=== PATIENT | female | born 1955 | race Native Hawaiian/Other Pacific Islander ===

== ENCOUNTER 2021-11-02 10:37 | Inpatient (IN) | payer OTHER, MEDICARE ==
[~2021-11-02] VITALS: Ht 154.9 cm; Wt 68.7 kg
[2021-11-03] MEDS ORDERED: PNEUMOCOCCAL VACCINE POLYVALENT 0.5 ML VIAL [PPSV23] IM. ONE (17:15)
[2021-11-03] MEDS ORDERED: ALBUTEROL SULFATE 2.5 MG/0.5 ML NEB SOLUTION NEB PRN (17:45)
[2021-11-03] MEDS ORDERED: MELATONIN 3 MG TABLET PO PRN (17:45)
[2021-11-03 18:45] VITALS: BP 133/72
[2021-11-03] MEDS: DOCUSATE SODIUM 100 MG CAPSULE PO SCH (21:31)
[2021-11-03] MEDS: APIXABAN 5 MG TABLET PO SCH (21:31)
[2021-11-03] MEDS: PANTOPRAZOLE SODIUM 40 MG DR TABLET PO SCH (21:31)
[2021-11-03] MEDS: SENNA 187 MG TABLET PO SCH (21:31)
[2021-11-03] MEDS: ATORVASTATIN CALCIUM 40 MG TABLET PO SCH (21:31)
[2021-11-03] MEDS: DICLOFENAC SODIUM 1% 100 GM GEL [4GM] TP SCH (21:32)
[2021-11-04 02:30] VITALS: BP 109/63
[2021-11-04 06:17] LABS: EOSINOPHILS % (AUTO) 4.2 % (1.0-6.0); HEMATOCRIT 32.5 % (36-46); HEMOGLOBIN 10.8 g/dL (12.0-16.0); LYMPHOCYTES # (AUTO) 1.2 K/uL (1.0-4.8); LYMPHOCYTES % (AUTO) 15.5 % (22.0-44.0); MEAN CORPUSCULAR HEMOGLOBIN 29.6 pg (26.0-34.0); MEAN CORPUSCULAR HGB CONC 33.3 G/dL (31.0-37.0); MEAN CORPUSCULAR VOLUME 89 fL (80-100); MONOCYTES # (AUTO) 0.8 K/uL (0.1-1.0); MONOCYTES % (AUTO) 10.4 % (2.0-9.0); NEUTROPHILS # (AUTO) 5.4 K/uL (1.8-7.7); NEUTROPHILS % (AUTO) 68.9 % (40.0-70.0); PLATELET COUNT (AUTO) 490 K/uL (150-450); RED BLOOD CELL COUNT(AUTO) 3.66 MIL/uL (4.00-5.20)
[2021-11-04 06:43] LABS: ALBUMIN 2.6 g/dL (3.4-5.0); BILIRUBIN,TOTAL 0.6 mg/dL (0.1-1.0); CALCIUM, TOTAL 9.1 mg/dL (8.8-10.5); CREATININE 1.24 mg/dL (0.60-1.30); POTASSIUM 4.6 mmol/L (3.5-5.1)
[2021-11-04] MEDS: MULTIVITAMINS WITH MINERALS, THERAPEUTIC TABLET PO SCH (08:03)
[2021-11-04] MEDS: DOCUSATE SODIUM 100 MG CAPSULE PO SCH ×2 (08:03→21:20)
[2021-11-04] MEDS: FUROSEMIDE 40 MG TABLET PO SCH (08:04)
[2021-11-04] MEDS: DICLOFENAC SODIUM 1% 100 GM GEL [4GM] TP SCH ×3 (08:04→21:20)
[2021-11-04] MEDS: APIXABAN 5 MG TABLET PO SCH ×2 (08:04→21:20)
[2021-11-04] MEDS: AMIODARONE HCL 200 MG TABLET PO SCH (08:04)
[2021-11-04] MEDS: LOSARTAN POTASSIUM 50 MG TABLET PO SCH (08:21)
[2021-11-04 08:26] VITALS: BP 122/45
[2021-11-04] MEDS: ACETAMINOPHEN 325 MG TABLET PO PRN (08:31)
[2021-11-04 10:55] VITALS: BP 123/69
[2021-11-04 15:40] VITALS: BP 143/80
[2021-11-04] MEDS: PANTOPRAZOLE SODIUM 40 MG DR TABLET PO SCH (21:20)
[2021-11-04] MEDS: SENNA 187 MG TABLET PO SCH (21:20)
[2021-11-04] MEDS: ATORVASTATIN CALCIUM 40 MG TABLET PO SCH (21:22)
[2021-11-05] VITALS: BP 135/67
[2021-11-05 08:05] VITALS: BP 123/63
[2021-11-05] MEDS: APIXABAN 5 MG TABLET PO SCH ×2 (08:31→21:19)
[2021-11-05] MEDS: FUROSEMIDE 40 MG TABLET PO SCH (08:31)
[2021-11-05] MEDS: MULTIVITAMINS WITH MINERALS, THERAPEUTIC TABLET PO SCH (08:31)
[2021-11-05] MEDS: AMIODARONE HCL 200 MG TABLET PO SCH (08:31)
[2021-11-05] MEDS: LOSARTAN POTASSIUM 50 MG TABLET PO SCH (08:32)
[2021-11-05] MEDS: DOCUSATE SODIUM 100 MG CAPSULE PO SCH (08:32)
[2021-11-05] MEDS: DICLOFENAC SODIUM 1% 100 GM GEL [4GM] TP SCH ×3 (08:34→21:20)
[2021-11-05] MEDS ORDERED: DEXTRAN 70 0.1%/HYPROMELL 0.3% 0.9 ML OPHTHALMIC SOLUTION [PF] OU PRN (15:15)
[2021-11-05 16:34] VITALS: BP 145/72
[2021-11-05] MEDS ORDERED: MAGNESIUM HYDROXIDE SUSPENSION 30 ML UDCUP PO PRN (18:30)
[2021-11-05] MEDS: DOCUSATE SODIUM 250 MG CAPSULE PO SCH (21:19)
[2021-11-05] MEDS: ATORVASTATIN CALCIUM 40 MG TABLET PO SCH (21:19)
[2021-11-05] MEDS: SENNA 187 MG TABLET PO SCH (21:19)
[2021-11-05] MEDS: PANTOPRAZOLE SODIUM 40 MG DR TABLET PO SCH (21:19)
[2021-11-05] MEDS: ETHYL ALCOHOL 62% ANTISEPTIC NASAL SANITIZER 0.6 ML AMPUL NASAL SCH (21:29)
[2021-11-05 23:44] VITALS: BP 136/75
[2021-11-06 08:15] VITALS: BP 155/77
[2021-11-06] MEDS: ETHYL ALCOHOL 62% ANTISEPTIC NASAL SANITIZER 0.6 ML AMPUL NASAL SCH ×2 (08:21→20:12)
[2021-11-06] MEDS: DICLOFENAC SODIUM 1% 100 GM GEL [4GM] TP SCH ×3 (08:21→20:12)
[2021-11-06] MEDS: LOSARTAN POTASSIUM 50 MG TABLET PO SCH (08:22)
[2021-11-06] MEDS: MULTIVITAMINS WITH MINERALS, THERAPEUTIC TABLET PO SCH (08:30)
[2021-11-06] MEDS: FUROSEMIDE 40 MG TABLET PO SCH (08:30)
[2021-11-06] MEDS: AMIODARONE HCL 200 MG TABLET PO SCH (08:30)
[2021-11-06] MEDS: DOCUSATE SODIUM 250 MG CAPSULE PO SCH ×2 (08:30→20:13)
[2021-11-06] MEDS: APIXABAN 5 MG TABLET PO SCH ×2 (08:31→20:13)
[2021-11-06 16:03] VITALS: BP 148/81
[2021-11-06] MEDS: PANTOPRAZOLE SODIUM 40 MG DR TABLET PO SCH (20:13)
[2021-11-06] MEDS: ATORVASTATIN CALCIUM 40 MG TABLET PO SCH (20:13)
[2021-11-06] MEDS: SENNA 187 MG TABLET PO SCH (20:13)
[2021-11-06] MEDS ORDERED: LOSA-382 PO (20:29)
[2021-11-07 02:59] VITALS: BP 122/56
[2021-11-07 07:23] LABS: BASOPHILS % (AUTO) 1.1 % (0.0-2.0); EOSINOPHILS % (AUTO) 5.8 % (1.0-6.0); HEMATOCRIT 35.3 % (36-46); HEMOGLOBIN 11.8 g/dL (12.0-16.0); LYMPHOCYTES # (AUTO) 1.1 K/uL (1.0-4.8); LYMPHOCYTES % (AUTO) 19.8 % (22.0-44.0); MEAN CORPUSCULAR HEMOGLOBIN 29.7 pg (26.0-34.0); MEAN CORPUSCULAR HGB CONC 33.4 G/dL (31.0-37.0); MEAN CORPUSCULAR VOLUME 89 fL (80-100); MONOCYTES # (AUTO) 0.5 K/uL (0.1-1.0); MONOCYTES % (AUTO) 8.7 % (2.0-9.0); NEUTROPHILS # (AUTO) 3.4 K/uL (1.8-7.7); NEUTROPHILS % (AUTO) 64.6 % (40.0-70.0); PLATELET COUNT (AUTO) 520 K/uL (150-450); RED BLOOD CELL COUNT(AUTO) 3.98 MIL/uL (4.00-5.20); RED CELL DISTRIBUTION WIDTH 14.9 % (11.5-14.5)
[2021-11-07 07:43] LABS: BILIRUBIN,TOTAL 0.4 mg/dL (0.1-1.0); C-REACTIVE PROTEIN QUANT 1.72 mg/dL (0.00-0.30); CALCIUM, TOTAL 9.5 mg/dL (8.8-10.5); CREATININE 1.06 mg/dL (0.60-1.30); MAGNESIUM 2.4 mg/dL (1.80-2.40); POTASSIUM 4.5 mmol/L (3.5-5.1); TOTAL PROTEIN, SERUM 8.6 g/dL (6.4-8.2)
[2021-11-07 08:01] VITALS: BP 144/84
[2021-11-07] MEDS: DICLOFENAC SODIUM 1% 100 GM GEL [4GM] TP SCH ×3 (08:04→20:09)
[2021-11-07] MEDS: ETHYL ALCOHOL 62% ANTISEPTIC NASAL SANITIZER 0.6 ML AMPUL NASAL SCH ×2 (08:04→20:09)
[2021-11-07] MEDS: FUROSEMIDE 40 MG TABLET PO SCH (08:05)
[2021-11-07] MEDS: MULTIVITAMINS WITH MINERALS, THERAPEUTIC TABLET PO SCH (08:05)
[2021-11-07] MEDS: DOCUSATE SODIUM 250 MG CAPSULE PO SCH ×2 (08:05→20:09)
[2021-11-07] MEDS: APIXABAN 5 MG TABLET PO SCH ×2 (08:05→20:09)
[2021-11-07] MEDS: AMIODARONE HCL 200 MG TABLET PO SCH (08:05)
[2021-11-07] MEDS: LOSARTAN POTASSIUM 50 MG TABLET PO SCH (08:05)
[2021-11-07 16:05] VITALS: BP 134/85
[2021-11-07] MEDS: SENNA 187 MG TABLET PO SCH (20:09)
[2021-11-07] MEDS: PANTOPRAZOLE SODIUM 40 MG DR TABLET PO SCH (20:09)
[2021-11-07] MEDS: ATORVASTATIN CALCIUM 40 MG TABLET PO SCH (20:09)
[2021-11-08 01:30] VITALS: BP 114/61
[2021-11-08 08:01] VITALS: BP 140/52
[2021-11-08] MEDS: FUROSEMIDE 40 MG TABLET PO SCH (08:01)
[2021-11-08] MEDS: DICLOFENAC SODIUM 1% 100 GM GEL [4GM] TP SCH ×3 (08:01→20:05)
[2021-11-08] MEDS: ETHYL ALCOHOL 62% ANTISEPTIC NASAL SANITIZER 0.6 ML AMPUL NASAL SCH ×2 (08:01→20:04)
[2021-11-08] MEDS: MULTIVITAMINS WITH MINERALS, THERAPEUTIC TABLET PO SCH (08:01)
[2021-11-08] MEDS: APIXABAN 5 MG TABLET PO SCH ×2 (08:01→20:04)
[2021-11-08] MEDS: DOCUSATE SODIUM 250 MG CAPSULE PO SCH ×3 (08:01→20:10)
[2021-11-08] MEDS: AMIODARONE HCL 200 MG TABLET PO SCH (08:02)
[2021-11-08] MEDS: LOSARTAN POTASSIUM 50 MG TABLET PO SCH (08:02)
[2021-11-08 16:00] VITALS: BP 136/77
[2021-11-08] MEDS: PANTOPRAZOLE SODIUM 40 MG DR TABLET PO SCH (20:04)
[2021-11-08] MEDS: SENNA 187 MG TABLET PO SCH ×2 (20:04→20:10)
[2021-11-08] MEDS: ATORVASTATIN CALCIUM 40 MG TABLET PO SCH (20:05)
[2021-11-09] MEDS ORDERED: DOCU250C99 PO (02:02)
[2021-11-09] MEDS ORDERED: SENN-277 PO (03:36)
[2021-11-09] MEDS ORDERED: FURO40 PO (03:36)
[2021-11-09] MEDS ORDERED: APIX5TAB PO (03:36)
[2021-11-09] MEDS ORDERED: MULT-1239 PO (03:36)
[2021-11-09] MEDS ORDERED: DICL100G51 TP (03:36)
[2021-11-09] MEDS ORDERED: ATOR40TA28 PO (03:36)
[2021-11-09] MEDS ORDERED: AMIO200T68 PO (03:36)
[2021-11-09] MEDS ORDERED: PANT-31 PO (03:36)
[2021-11-09 04:43] VITALS: BP 112/82
[2021-11-09] MEDS: ACETAMINOPHEN 325 MG TABLET PO PRN (04:43)
[2021-11-09 05:00] VITALS: BP 112/82
[2021-11-09 07:30] VITALS: BP 153/109
[2021-11-09] MEDS: ETHYL ALCOHOL 62% ANTISEPTIC NASAL SANITIZER 0.6 ML AMPUL NASAL SCH ×2 (07:53→20:24)
[2021-11-09] MEDS: AMIODARONE HCL 200 MG TABLET PO SCH (07:55)
[2021-11-09] MEDS: FUROSEMIDE 40 MG TABLET PO SCH (07:55)
[2021-11-09] MEDS: MULTIVITAMINS WITH MINERALS, THERAPEUTIC TABLET PO SCH (07:55)
[2021-11-09] MEDS: LOSARTAN POTASSIUM 50 MG TABLET PO SCH (07:55)
[2021-11-09] MEDS: DOCUSATE SODIUM 250 MG CAPSULE PO SCH ×2 (07:55→20:24)
[2021-11-09] MEDS: APIXABAN 5 MG TABLET PO SCH ×2 (07:57→20:24)
[2021-11-09] MEDS: DICLOFENAC SODIUM 1% 100 GM GEL [4GM] TP SCH ×3 (07:58→20:24)
[2021-11-09 09:25] VITALS: BP 152/55
[2021-11-09 16:00] VITALS: BP 133/91
[2021-11-09] MEDS: SENNA 187 MG TABLET PO SCH (20:24)
[2021-11-09] MEDS: PANTOPRAZOLE SODIUM 40 MG DR TABLET PO SCH (20:24)
[2021-11-09] MEDS: ATORVASTATIN CALCIUM 40 MG TABLET PO SCH (20:24)
[2021-11-10] VITALS: BP 108/61
[2021-11-10 08:00] VITALS: BP 114/58
[2021-11-10] MEDS: LOSARTAN POTASSIUM 50 MG TABLET PO SCH (08:21)
[2021-11-10] MEDS: APIXABAN 5 MG TABLET PO SCH ×2 (08:21→20:24)
[2021-11-10] MEDS: FUROSEMIDE 40 MG TABLET PO SCH (08:21)
[2021-11-10] MEDS: AMIODARONE HCL 200 MG TABLET PO SCH (08:21)
[2021-11-10] MEDS: ETHYL ALCOHOL 62% ANTISEPTIC NASAL SANITIZER 0.6 ML AMPUL NASAL SCH ×2 (08:21→20:22)
[2021-11-10] MEDS: DICLOFENAC SODIUM 1% 100 GM GEL [4GM] TP SCH ×3 (08:22→20:25)
[2021-11-10] MEDS: MULTIVITAMINS WITH MINERALS, THERAPEUTIC TABLET PO SCH (08:22)
[2021-11-10] MEDS: DOCUSATE SODIUM 250 MG CAPSULE PO SCH ×2 (08:22→20:24)
[2021-11-10 16:00] VITALS: BP 116/61
[2021-11-10] MEDS: PANTOPRAZOLE SODIUM 40 MG DR TABLET PO SCH (20:24)
[2021-11-10] MEDS: SENNA 187 MG TABLET PO SCH (20:24)
[2021-11-10] MEDS: ATORVASTATIN CALCIUM 40 MG TABLET PO SCH (20:24)
[2021-11-11 06:00] VITALS: BP 134/60
[2021-11-11 08:05] VITALS: BP 129/55
[2021-11-11] MEDS: DOCUSATE SODIUM 250 MG CAPSULE PO SCH ×2 (08:08→20:04)
[2021-11-11] MEDS: ACETAMINOPHEN 325 MG TABLET PO PRN (08:08)
[2021-11-11] MEDS: MULTIVITAMINS WITH MINERALS, THERAPEUTIC TABLET PO SCH (08:08)
[2021-11-11] MEDS: AMIODARONE HCL 200 MG TABLET PO SCH (08:08)
[2021-11-11] MEDS: FUROSEMIDE 40 MG TABLET PO SCH (08:09)
[2021-11-11] MEDS: LOSARTAN POTASSIUM 50 MG TABLET PO SCH (08:09)
[2021-11-11] MEDS: ETHYL ALCOHOL 62% ANTISEPTIC NASAL SANITIZER 0.6 ML AMPUL NASAL SCH ×2 (08:09→20:04)
[2021-11-11] MEDS: APIXABAN 5 MG TABLET PO SCH ×2 (08:09→20:04)
[2021-11-11] MEDS: DICLOFENAC SODIUM 1% 100 GM GEL [4GM] TP SCH ×3 (08:09→20:00)
[2021-11-11 19:00] VITALS: BP 115/58
[2021-11-11] MEDS: PANTOPRAZOLE SODIUM 40 MG DR TABLET PO SCH (20:04)
[2021-11-11] MEDS: SENNA 187 MG TABLET PO SCH (20:04)
[2021-11-11] MEDS: ATORVASTATIN CALCIUM 40 MG TABLET PO SCH (20:04)
[2021-11-12] VITALS: BP 113/72
[2021-11-12] MEDS: ACETAMINOPHEN 325 MG TABLET PO PRN ×3 (02:21→19:53)
[2021-11-12 08:00] VITALS: BP 125/69
[2021-11-12] MEDS: APIXABAN 5 MG TABLET PO SCH ×2 (08:46→20:25)
[2021-11-12] MEDS: DOCUSATE SODIUM 250 MG CAPSULE PO SCH ×2 (08:46→20:25)
[2021-11-12] MEDS: MULTIVITAMINS WITH MINERALS, THERAPEUTIC TABLET PO SCH (08:46)
[2021-11-12] MEDS: LOSARTAN POTASSIUM 50 MG TABLET PO SCH (08:46)
[2021-11-12] MEDS: AMIODARONE HCL 200 MG TABLET PO SCH (08:46)
[2021-11-12] MEDS: FUROSEMIDE 40 MG TABLET PO SCH (08:47)
[2021-11-12] MEDS: ETHYL ALCOHOL 62% ANTISEPTIC NASAL SANITIZER 0.6 ML AMPUL NASAL SCH ×2 (08:47→20:24)
[2021-11-12] MEDS: DICLOFENAC SODIUM 1% 100 GM GEL [4GM] TP SCH ×3 (08:47→20:25)
[2021-11-12 14:42] LABS: URIC ACID 6.3 mg/dL (2.6-7.2)
[2021-11-12 16:01] VITALS: BP 122/53
[2021-11-12 16:02] LABS: C-REACTIVE PROTEIN QUANT 2.1 mg/dL (0.00-0.30)
[2021-11-12] MEDS: ATORVASTATIN CALCIUM 40 MG TABLET PO SCH (20:25)
[2021-11-12] MEDS: SENNA 187 MG TABLET PO SCH (20:25)
[2021-11-12] MEDS: PANTOPRAZOLE SODIUM 40 MG DR TABLET PO SCH (20:26)
[2021-11-13 02:30] VITALS: BP 126/54
[2021-11-13] MEDS: APIXABAN 5 MG TABLET PO SCH ×2 (08:19→20:20)
[2021-11-13] MEDS: FUROSEMIDE 40 MG TABLET PO SCH (08:19)
[2021-11-13] MEDS: ETHYL ALCOHOL 62% ANTISEPTIC NASAL SANITIZER 0.6 ML AMPUL NASAL SCH ×2 (08:20→20:20)
[2021-11-13] MEDS: DOCUSATE SODIUM 250 MG CAPSULE PO SCH ×2 (08:20→20:20)
[2021-11-13] MEDS: LOSARTAN POTASSIUM 50 MG TABLET PO SCH (08:20)
[2021-11-13] MEDS: MULTIVITAMINS WITH MINERALS, THERAPEUTIC TABLET PO SCH (08:20)
[2021-11-13] MEDS: AMIODARONE HCL 200 MG TABLET PO SCH (08:20)
[2021-11-13] MEDS: DICLOFENAC SODIUM 1% 100 GM GEL [4GM] TP SCH ×3 (08:20→20:21)
[2021-11-13 09:00] VITALS: BP 133/52
[2021-11-13 16:45] VITALS: BP 145/57
[2021-11-13] MEDS: PANTOPRAZOLE SODIUM 40 MG DR TABLET PO SCH (20:20)
[2021-11-13] MEDS: ATORVASTATIN CALCIUM 40 MG TABLET PO SCH (20:20)
[2021-11-13] MEDS: SENNA 187 MG TABLET PO SCH (20:20)
[2021-11-13] MEDS: ACETAMINOPHEN 325 MG TABLET PO PRN (21:57)
[2021-11-14 00:30] VITALS: BP 131/52
[2021-11-14 08:00] VITALS: BP 128/77
[2021-11-14] MEDS: DOCUSATE SODIUM 250 MG CAPSULE PO SCH ×2 (08:14→20:16)
[2021-11-14] MEDS: AMIODARONE HCL 200 MG TABLET PO SCH (08:14)
[2021-11-14] MEDS: APIXABAN 5 MG TABLET PO SCH ×2 (08:14→20:16)
[2021-11-14] MEDS: LOSARTAN POTASSIUM 50 MG TABLET PO SCH (08:14)
[2021-11-14] MEDS: MULTIVITAMINS WITH MINERALS, THERAPEUTIC TABLET PO SCH (08:14)
[2021-11-14] MEDS: ETHYL ALCOHOL 62% ANTISEPTIC NASAL SANITIZER 0.6 ML AMPUL NASAL SCH ×2 (08:14→20:15)
[2021-11-14] MEDS: FUROSEMIDE 40 MG TABLET PO SCH (08:14)
[2021-11-14] MEDS: ACETAMINOPHEN 325 MG TABLET PO PRN (09:13)
[2021-11-14] MEDS: DICLOFENAC SODIUM 1% 100 GM GEL [4GM] TP SCH ×3 (10:25→20:17)
[2021-11-14 17:04] VITALS: BP 139/74
[2021-11-14] MEDS: ATORVASTATIN CALCIUM 40 MG TABLET PO SCH (20:16)
[2021-11-14] MEDS: PANTOPRAZOLE SODIUM 40 MG DR TABLET PO SCH (20:16)
[2021-11-14] MEDS: SENNA 187 MG TABLET PO SCH (20:16)
[2021-11-15 02:00] VITALS: BP 132/70
[2021-11-15 08:05] VITALS: BP 129/56
[2021-11-15] MEDS: DOCUSATE SODIUM 250 MG CAPSULE PO SCH ×2 (08:26→20:08)
[2021-11-15] MEDS: MULTIVITAMINS WITH MINERALS, THERAPEUTIC TABLET PO SCH (08:26)
[2021-11-15] MEDS: LOSARTAN POTASSIUM 50 MG TABLET PO SCH (08:26)
[2021-11-15] MEDS: ETHYL ALCOHOL 62% ANTISEPTIC NASAL SANITIZER 0.6 ML AMPUL NASAL SCH ×2 (08:26→20:08)
[2021-11-15] MEDS: AMIODARONE HCL 200 MG TABLET PO SCH (08:27)
[2021-11-15] MEDS: APIXABAN 5 MG TABLET PO SCH ×2 (08:27→20:09)
[2021-11-15] MEDS: DICLOFENAC SODIUM 1% 100 GM GEL [4GM] TP SCH ×3 (08:27→20:09)
[2021-11-15] MEDS: FUROSEMIDE 40 MG TABLET PO SCH (08:27)
[2021-11-15 11:35] VITALS: BP 110/73
[2021-11-15 12:05] VITALS: BP 136/72
[2021-11-15 12:46] LABS: GLUCOMETER DEV NAME(LOC) 2WR.2B; GLUCOSE,POINT OF CARE 94 MG/DL (70-110)
[2021-11-15 12:55] LABS: BASOPHILS % (AUTO) 1.2 % (0.0-2.0); EOSINOPHILS % (AUTO) 1.7 % (1.0-6.0); HEMATOCRIT 33.7 % (36-46); HEMOGLOBIN 11.1 g/dL (12.0-16.0); LYMPHOCYTES # (AUTO) 1.2 K/uL (1.0-4.8); LYMPHOCYTES % (AUTO) 17.6 % (22.0-44.0); MEAN CORPUSCULAR HEMOGLOBIN 29.1 pg (26.0-34.0); MEAN CORPUSCULAR HGB CONC 32.9 G/dL (31.0-37.0); MEAN CORPUSCULAR VOLUME 89 fL (80-100); MONOCYTES # (AUTO) 0.4 K/uL (0.1-1.0); MONOCYTES % (AUTO) 5.2 % (2.0-9.0); NEUTROPHILS # (AUTO) 5.1 K/uL (1.8-7.7); NEUTROPHILS % (AUTO) 74.3 % (40.0-70.0); PLATELET COUNT (AUTO) 383 K/uL (150-450); RED BLOOD CELL COUNT(AUTO) 3.81 MIL/uL (4.00-5.20); RED CELL DISTRIBUTION WIDTH 14.3 % (11.5-14.5)
[2021-11-15 13:10] LABS: CALCIUM, TOTAL 9.6 mg/dL (8.8-10.5); CREATININE 1.04 mg/dL (0.60-1.30); POTASSIUM 3.9 mmol/L (3.5-5.1)
[2021-11-15 16:02] VITALS: BP 134/70
[2021-11-15] MEDS: PANTOPRAZOLE SODIUM 40 MG DR TABLET PO SCH (20:08)
[2021-11-15] MEDS: ATORVASTATIN CALCIUM 40 MG TABLET PO SCH (20:08)
[2021-11-15] MEDS: SENNA 187 MG TABLET PO SCH (20:08)
[2021-11-16] VITALS: BP 128/67
[2021-11-16 07:15] VITALS: BP 151/94
[2021-11-16] MEDS: AMIODARONE HCL 200 MG TABLET PO SCH (07:51)
[2021-11-16] MEDS: DOCUSATE SODIUM 250 MG CAPSULE PO SCH (07:51)
[2021-11-16] MEDS: FUROSEMIDE 40 MG TABLET PO SCH (07:51)
[2021-11-16] MEDS: ETHYL ALCOHOL 62% ANTISEPTIC NASAL SANITIZER 0.6 ML AMPUL NASAL SCH (07:51)
[2021-11-16] MEDS: APIXABAN 5 MG TABLET PO SCH (07:51)
[2021-11-16] MEDS: LOSARTAN POTASSIUM 50 MG TABLET PO SCH (07:51)
[2021-11-16] MEDS: DICLOFENAC SODIUM 1% 100 GM GEL [4GM] TP SCH (07:52)
[2021-11-16] MEDS: MULTIVITAMINS WITH MINERALS, THERAPEUTIC TABLET PO SCH (07:52)
[2021-11-16 08:16] VITALS: BP 148/89
[2021-11-16 08:53] VITALS: BP 146/71
[2021-11-16 10:00] VITALS: BP 132/76
[2021-11-16] MEDS ORDERED: ATOR40TA71 PO (10:59)
[2021-11-16] MEDS ORDERED: DICL100G51 TP (10:59)
[2021-11-16] MEDS ORDERED: DOCU250C99 PO (10:59)
[2021-11-16] MEDS ORDERED: LOSA-382 PO (10:59)
[2021-11-16] MEDS ORDERED: AMIO200 PO (10:59)
[2021-11-16] MEDS ORDERED: APIX5TAB PO (10:59)
[2021-11-16] MEDS ORDERED: MULT-1239 PO (10:59)
[2021-11-16] MEDS ORDERED: FURO40 PO (10:59)
[2021-11-16] MEDS ORDERED: SENN-187 PO (10:59)
[2021-11-16] MEDS ORDERED: PANT-31 PO (10:59)
== END 2021-11-16 13:00 | disposition home health service (06) | DRG 65 ==
LOC: 2WR 11-03 16:20
PROVIDERS: ADMIT Physical Medicine & Rehabilitation; ATTEND Physical Medicine & Rehabilitation
DX: I63.40 Cerebral infarction due to embolism of unspecified cerebral artery (principal); G81.94 Hemiplegia, unspecified affecting left nondominant side; I31.3 Pericardial effusion (noninflammatory); I31.4 Cardiac tamponade; I82.623 Acute embolism and thrombosis of deep veins of upper extremity, bilateral; L03.113 Cellulitis of right upper limb; E78.5 Hyperlipidemia, unspecified; R47.01 Aphasia; G31.84 Mild cognitive impairment of uncertain or unknown etiology; G47.00 Insomnia, unspecified; I10 Essential (primary) hypertension; I48.0 Paroxysmal atrial fibrillation; K21.9 Gastro-esophageal reflux disease without esophagitis; K59.00 Constipation, unspecified; R13.10 Dysphagia, unspecified; R76.8 Other specified abnormal immunological findings in serum; Z20.822 Contact with and (suspected) exposure to COVID-19; Z74.1 Need for assistance with personal care; Z79.01 Long term (current) use of anticoagulants; Z82.49 Family history of ischemic heart disease and other diseases of the circulatory system; Z86.73 Personal history of transient ischemic attack (TIA), and cerebral infarction without residual deficits
CPT/HCPCS: 71045; 80048; 80053; 82962; 83036; 83735; 83880; 84484; 84550; 85025; 85651; 86140; 87081; 90732; 92507; 92523; 92526; 93005; 93306; 97110; 97112; 97116; 97162; 97167; 97530; 97535; 99366; 36415-L1; 36415-TC